=== PATIENT | male | born 1995 | race Caucasian/White ===

== ENCOUNTER 2021-05-21 03:34 | Emergency (ER) | payer OTHER ==
--- NOTE | 2021-05-21 06:03 | EDPHYS ---
Physician Documentation [facility] Name: Taylor Mcdonald Age: 26 yrs Sex: Male : 1995 Arrival Date: 05/21/2021 Time: 03:36 Bed Treatment Private MD: ED Physician Dino Mccrary HPI: 05/21 05:56 This 26 yrs old Male presents to ER via Ambulatory with complaints of Ear Pain. mh7 05:56 The patient presents with pain, moderate. The complaints affect the right ear. Onset: mh7 The symptoms/episode began/occurred last night, and became worse this morning. Modifying factors: The symptoms are alleviated by nothing, the symptoms are aggravated by nothing. Associated signs and symptoms: Pertinent negatives: cough, fever, lightheadedness, nausea, rhinorrhea, sinus trouble, shortness of breath, sore throat, tinnitus, vertigo, vomiting. Severity of symptoms: At their worst the symptoms were moderate this morning, in the emergency department the symptoms are unchanged. Historical: - Allergies: 05:03 No Known Allergies; bb - Home Meds: 05:03 None [Active]; bb - PMHx: 05:03 None; bb - Immunization history:: Adult Immunizations up to date. - Social history:: Smoking status: Patient denies any tobacco usage or history of. ROS: 05:56 Constitutional: Negative for fever, chills, and weight loss, Eyes: Negative for injury, mh7 pain, redness, and discharge, Neck: Negative for injury, pain, and swelling, Cardiovascular: Negative for chest pain, palpitations, and edema, Respiratory: Negative for shortness of breath, cough, wheezing, and pleuritic chest pain, Abdomen/GI: Negative for abdominal pain, nausea, vomiting, diarrhea, and constipation, Back: Negative for injury and pain, : Negative for injury, bleeding, discharge, and swelling, MS/Extremity: Negative for injury and deformity, Skin: Negative for injury, rash, and discoloration, Neuro: Negative for headache, weakness, numbness, tingling, and seizure, Psych: Negative for depression, anxiety, suicide ideation, homicidal ideation, and hallucinations, Allergy/Immunology: Negative for hives, rash, and allergies, Endocrine: Negative for neck swelling, polydipsia, polyuria, polyphagia, and marked weight changes, Hematologic/Lymphatic: Negative for swollen nodes, abnormal bleeding, and unusual bruising. Exam: 05:56 Constitutional: This is a well developed, well nourished patient who is awake, alert, mh7 and in no acute distress. Head/Face: Normocephalic, atraumatic. Eyes: Pupils equal round and reactive to light, extra-ocular motions intact. Lids and lashes normal. Conjunctiva and sclera are non-icteric and not injected. Cornea within normal limits. Periorbital areas with no swelling, redness, or edema. 05:56 Neck: Trachea midline, no thyromegaly or masses palpated, and no cervical lymphadenopathy. Supple, full range of motion without nuchal rigidity, or vertebral point tenderness. No Meningismus. Chest/axilla: Normal chest wall appearance and motion. Nontender with no deformity. No lesions are appreciated. Cardiovascular: Regular rate and rhythm with a normal S1 and S2. No gallops, murmurs, or rubs. Normal PMI, no JVD. No pulse deficits. Respiratory: Lungs have equal breath sounds bilaterally, clear to auscultation and percussion. No rales, rhonchi or wheezes noted. No increased work of breathing, no retractions or nasal flaring. Abdomen/GI: Soft, non-tender, with normal bowel sounds. No distension or tympany. No guarding or rebound. No evidence of tenderness throughout. Skin: Warm, dry with normal turgor. Normal color with no rashes, no lesions, and no evidence of cellulitis. MS/ Extremity: Pulses equal, no cyanosis. Neurovascular intact. Full, normal range of motion. Neuro: Awake and alert, GCS 15, oriented to person, place, time, and situation. Cranial nerves II-XII grossly intact. Motor strength 5/5 in all extremities. Sensory grossly intact. Cerebellar exam normal. Normal gait. Psych: Awake, alert, with orientation to person, place and time. Behavior, mood, and affect are within normal limits. 05:56 ENT: External ear(s): are unremarkable, Ear canal(s): are normal, clear, TM's: bulging, on the right, dullness, on the right, erythema, that is moderate, on the right, fluid levels, is not appreciated, hemotympanum, is not appreciated, bilaterally, loss of bony landmarks, is not appreciated, bilaterally, rupture, is not appreciated, bilaterally, Examination of the other ear shows no obvious abnormality, Nose: is normal, Mouth: is normal, Posterior pharynx: is normal, airway is patent, Dental exam: normal, Voice: is normal. Vital Signs: 05:01 BP 120 / 66; Pulse 84; Resp 18 S; Temp 98(O); Pulse Ox 96% on R/A; Weight 113.4 kg (R); bb Height 5 ft. 6 in. (167.64 cm) (R); Pain 10/10; 05:01 Body Mass Index 40.35 (113.40 kg, 167.64 cm) bb MDM: 05:56 Differential diagnosis: otitis media, otitis externa, ruptured TM, foreign body, acute mh7 otalgia, cerumen impaction, barotrauma , serotympanum. Data reviewed: vital signs, nurses notes. Data interpreted: Pulse oximetry: on room air is 96 %. Interpretation: normal. Counseling: I had a detailed discussion with the patient and/or guardian regarding: the historical points, exam findings, and any diagnostic results supporting the discharge/admit diagnosis, the need for outpatient follow up, to return to the emergency department if symptoms worsen or persist or if there are any questions or concerns that arise at home. 06:03 Patient medically screened. [facility] Administered Medications: 06:25 Drug: Augmentin (Amoxicillin-Clavulanate) 500 mg Route: PO; 06:25 Follow up: Response: Medication administered at discharge. 06:25 Drug: Ibuprofen 800 mg Route: PO; 06:25 Follow up: Response: Medication administered at discharge. Disposition Summary: 05/21/21 06:03 Discharge Ordered Location: Home [facility] Problem: new [facility] Symptoms: have improved [facility] Condition: Stable 7 Diagnosis - Otitis media, unspecified, right ear 7 Followup: [facility] - With: Private Physician - When: 2 - 3 days - Reason: Worsening of condition, Recheck today's complaints, Continuance of care, Re-evaluation by your physician Discharge Instructions: - Discharge Summary Sheet 7 - Otitis Media, Adult, [id number] [facility] Forms: - Medication Reconciliation Form mh7 - Work release form eb - Thank You Letter 7 - Antibiotic Education mh7 - Prescription Opioid Use mh7 Prescriptions: - Augmentin 875-125 mg Oral Tablet - take 1 tablet by ORAL route every 12 hours for 10 days; 20 tablet; Refills: 0, [facility] Product Selection Permitted - Ibuprofen 800 mg Oral Tablet - take 1 tablet by ORAL route every 8 hours As needed take with food; 15 tablet; [facility] Refills: 0, Product Selection Permitted Signatures: Lois Garcia RN RN bb Holmes, Maurice, MD MD [facility]
--- NOTE | 2021-05-21 06:03 | ER ---
Nurse's Notes [facility] Name: Taylor Mcdonald Age: 26 yrs Sex: Male : 1995 Arrival Date: 05/21/2021 Time: 03:36 Bed Treatment Private MD: Diagnosis: Otitis media, unspecified, right ear Presentation: 05/21 05:01 Chief complaint: Patient states: she woke up this morning with right ear pain has bb pressure going down her jaw into her neck pain is 10/10. Coronavirus screen: At this time, the client does not indicate any symptoms associated with coronavirus-19. Ebola Screen: No symptoms or risks identified at this time. Initial Sepsis Screen: Does the patient meet any 2 criteria? No. Patient's initial sepsis screen is negative. Does the patient have a suspected source of infection? No. Patient's initial sepsis screen is negative. Risk Assessment: Do you want to hurt yourself or someone else? Patient reports no desire to harm self or others. Onset of symptoms was May 21, 2021. 05:01 Method Of Arrival: Ambulatory bb 05:01 Acuity: ADEBAYO 5 bb Triage Assessment: 05:03 General: Appears in no apparent distress. uncomfortable, Behavior is calm, cooperative. bb Pain: Complains of pain in right ear Pain currently is 10 out of 10 on a pain scale. EENT: Reports pain in right ear. Neuro: Level of Consciousness is awake, alert, obeys commands, Oriented to person, place, time, situation. Cardiovascular: Capillary refill < 3 seconds Patient's skin is warm and dry. Respiratory: Respiratory effort is even, unlabored. GI: No signs and/or symptoms were reported involving the gastrointestinal system. Derm: Skin is pink, warm \T\ dry. Musculoskeletal: Circulation, motion, and sensation intact. Historical: - Allergies: 05:03 No Known Allergies; bb - Home Meds: 05:03 None [Active]; bb - PMHx: 05:03 None; bb - Immunization history:: Adult Immunizations up to date. - Social history:: Smoking status: Patient denies any tobacco usage or history of. Screenin:05 Abuse screen: Denies threats or abuse. Nutritional screening: No deficits noted. bb Tuberculosis screening: No symptoms or risk factors identified. Fall Risk None identified. Assessment: 05:05 Reassessment: No changes from previously documented assessment. Patient is alert, bb oriented x 3, equal unlabored respirations, skin warm/dry/pink. see triage assessment. 06:25 Reassessment: Patient is alert, oriented x 3, equal unlabored respirations, skin bb warm/dry/pink. pt verbalized understanding of and agrees to plan of care discharge instructions given pt ambulated with steady gait to exit accompanied by spouse. Vital Signs: 05:01 BP 120 / 66; Pulse 84; Resp 18 S; Temp 98(O); Pulse Ox 96% on R/A; Weight 113.4 kg (R); bb Height 5 ft. 6 in. (167.64 cm) (R); Pain 10/10; 05:01 Body Mass Index 40.35 (113.40 kg, 167.64 cm) bb ED Course: 03:36 Patient arrived in ED. 05:03 Triage completed. bb 05:03 Arm band placed on Patient placed in an exam room, on a stretcher, on pulse oximetry. bb 05:05 Patient has correct armband on for positive identification. Call light in reach. Adult bb w/ patient. 05:44 Dino Mccrary MD is Attending Physician. [facility] 06:14 Lois Garcia RN is Primary Nurse. bb 06:26 No provider procedures requiring assistance completed. Patient did not have IV access bb during this emergency room visit. Administered Medications: 06:25 Drug: Augmentin (Amoxicillin-Clavulanate) 500 mg Route: PO; bb 06:25 Follow up: Response: Medication administered at discharge. bb 06:25 Drug: Ibuprofen 800 mg Route: PO; bb 06:25 Follow up: Response: Medication administered at discharge. bb Outcome: 06:03 Discharge ordered by . [facility] 06:26 Discharged to home ambulatory, with family. bb 06:26 Condition: stable 06:26 Discharge instructions given to patient, Instructed on discharge instructions, follow up and referral plans. medication usage, Demonstrated understanding of instructions, follow-up care, medications, Prescriptions given X 2. 06:26 Patient left the ED. bb Signatures: Lois Garcia, JAMES RN bb Dino Mccrary MD MD [facility] Regine Villegas
[2021-05-21] MEDS ORDERED: IBUPROFEN 400 MG TAB ONE (06:19)
[2021-05-21] MEDS ORDERED: AMOX/K CLAV 875 MG TAB ONE (06:19)
[2021-05-21 06:33] VITALS: BP 120/66; TEMP 98; O2SAT 96
== END 2021-05-21 06:26 | disposition home or self-care (01) ==
LOC: ER 03:34
DX: H66.91 Otitis media, unspecified, right ear (principal)
CPT/HCPCS: 99283

== ENCOUNTER 2021-06-06 20:13 | Emergency (ER) | payer OTHER ==
[2021-06-06] MEDS ORDERED: TETANUS & DIPHTHERIA TOX,ADULT 0.5 ML VIAL ONE (22:09)
--- NOTE | 2021-06-06 22:36 | EDPHYS ---
Physician Documentation [facility] Name: Taylor Mcdonald Age: 26 yrs Sex: Male : 1995 Arrival Date: 06/06/2021 Time: 20:16 Bed 23 Private MD: ED Physician Chris Mahoney HPI: 06/06 21:59 This 26 yrs old Male presents to ER via Ambulatory with complaints of Laceration To kb Hand. 21:59 The patient has a laceration related to: cooking, occurred at home, and there are no kb complicating factors. The injury was accidental. The laceration(s) is(are) located on the lateral aspect of left hand. Onset: The symptoms/episode began/occurred just prior to arrival. Associated signs and symptoms: The patient has no apparent associated signs or symptoms. The patient has not experienced similar symptoms in the past. The patient has not recently seen a physician. Accidentally cut hand while trying to get pit out of [place]. Historical: - Allergies: 20:29 No Known Allergies; ld1 - Home Meds: 20:29 None [Active]; ld1 - PMHx: 20:29 None; ld1 - PSHx: 20:29 section; ld1 - Immunization history:: Adult Immunizations up to date, Client reports having NOT received the Covid vaccine. - Social history:: Smoking status: Patient denies any tobacco usage or history of. Patient/guardian denies using alcohol. ROS: 21:58 Constitutional: Negative for fever, chills, and weight loss. kb 21:58 Skin: Positive for laceration(s), of the lateral aspect of left hand. 21:58 All other systems are negative. Exam: 21:59 Constitutional: This is a well developed, well nourished patient who is awake, alert, kb and in no acute distress. Head/Face: Normocephalic, atraumatic. ENT: Moist Mucous membranes Cardiovascular: Regular rate and rhythm with a normal S1 and S2. No gallops, murmurs, or rubs. No pulse deficits. Respiratory: Respirations even and unlabored. No increased work of breathing. Talking in full sentences MS/ Extremity: Pulses equal, no cyanosis. Neurovascular intact. Full, normal range of motion. Neuro: Awake and alert, GCS 15, oriented to person, place, time, and situation. Moves all extremities. Normal gait. Psych: Awake, alert, with orientation to person, place and time. Behavior, mood, and affect are within normal limits. 21:59 Skin: injury, laceration(s), the wound is approximately 1.5 cm(s), of the lateral aspect of left hand, that can be described as clean, no foreign body, linear, without bleeding. Vital Signs: 20:27 BP 129 / 86; Pulse 81; Resp 18; Temp 98.0(O); Pulse Ox 100% on R/A; Weight 113.4 kg; ld1 Height 5 ft. 6 in. (167.64 cm); Pain 7/10; 20:27 Body Mass Index 40.35 (113.40 kg, 167.64 cm) ld1 Laceration: 22:35 Wound Repair of 1.5cm ( 0.6in ) subcutaneous laceration to lateral aspect of left hand. kb Linear shaped.. Distal neuro/vascular/tendon intact. Anesthesia: Wound infiltrated with 1 mls of 1% lidocaine. Wound prep: Extensive cleansing with betadine by me, Wound irrigation with saline by me. Skin closed with 3 5-0 Prolene using simple sutures and sterile technique. Patient tolerated well. MDM: 21:09 Patient medically screened. kb 21:57 Data reviewed: vital signs, nurses notes. Data interpreted: Pulse oximetry: on room air kb is 100 %. Interpretation: normal. Counseling: I had a detailed discussion with the patient and/or guardian regarding: the historical points, exam findings, and any diagnostic results supporting the discharge/admit diagnosis, the need for outpatient follow up, a family practitioner, to return to the emergency department if symptoms worsen or persist or if there are any questions or concerns that arise at home. 06/06 21:25 Order name: Dressing - Wound; Complete Time: 22:08 kd3 06/06 21:25 Order name: Gloves, Sterile; Complete Time: 22:35 kd3 06/06 21:25 Order name: Prolene, Sutures; Complete Time: 22:08 kd3 06/06 21:25 Order name: Setup Suture Tray; Complete Time: 22:08 kd3 Administered Medications: 22:11 Drug: Tetanus-Diphtheria Toxoid Adult 0.5 ml {[employer] Contact [employer]inter: [employer]. Exp: sf1 10/01/2022. Lot #: [id number]. } Route: IM; Site: right deltoid; Disposition: 23:45 Co-signature as Attending Physician, Chris Mahoney MD. pkl Disposition Summary: 06/06/21 22:36 Discharge Ordered Location: Home kb Condition: Stable kb Diagnosis - Laceration without foreign body of left hand kb Followup: kb - With: Emergency Department - When: As needed - Reason: Worsening of condition Followup: kb - With: Private Physician - When: 2 - 3 days - Reason: Recheck today's complaints, Continuance of care, Re-evaluation by your physician Discharge Instructions: - Discharge Summary Sheet kb - Laceration Care, Adult, [id number] kb Forms: - Medication Reconciliation Form kb - Thank You Letter kb - Antibiotic Education kb - Prescription Opioid Use kb Signatures: Ann Moulton, YACHT BUILDER-C YACHT BUILDER-Ckb Chris Mahoney MD MD pkl Miriam Snell, RN RN ld1 Danielle Ramos RN RN kd3 Mouna Lee RN RN sf1
--- NOTE | 2021-06-06 22:36 | ER ---
Nurse's Notes [facility] Name: Taylor Mcdonald Age: 26 yrs Sex: Male : 1995 Arrival Date: 06/06/2021 Time: 20:16 Bed 23 Private MD: Diagnosis: Laceration without foreign body of left hand Presentation: 06/06 20:27 Chief complaint: Patient states: I was cutting an avocado the knife slipped and cut me. ld1 Laceration to left hand. Coronavirus screen: At this time, the client does not indicate any symptoms associated with coronavirus-19. Ebola Screen: No symptoms or risks identified at this time. Complicating Factors: There are no complicating factors for this patient. Initial Sepsis Screen: Does the patient meet any 2 criteria? No. Patient's initial sepsis screen is negative. Does the patient have a suspected source of infection? No. Patient's initial sepsis screen is negative. Risk Assessment: Do you want to hurt yourself or someone else? Patient reports no desire to harm self or others. Onset of symptoms was June 06, 2021. 20:27 Method Of Arrival: Ambulatory ld1 20:27 Acuity: ADEBAYO 4 ld1 Triage Assessment: 20:29 General: Appears in no apparent distress. comfortable, Behavior is calm, cooperative, ld1 appropriate for age. Pain: Complains of pain in left hand. Neuro: Level of Consciousness is awake, alert, obeys commands, Oriented to person, place, time, situation. Respiratory: Airway is patent Respiratory effort is even, unlabored. Injury Description: Laceration sustained to lateral aspect of left hand. Historical: - Allergies: 20:29 No Known Allergies; ld1 - Home Meds: 20:29 None [Active]; ld1 - PMHx: 20:29 None; ld1 - PSHx: 20:29 section; ld1 - Immunization history:: Adult Immunizations up to date, Client reports having NOT received the Covid vaccine. - Social history:: Smoking status: Patient denies any tobacco usage or history of. Patient/guardian denies using alcohol. Screenin:12 Abuse screen: Denies threats or abuse. Nutritional screening: No deficits noted. sf1 Tuberculosis screening: No symptoms or risk factors identified. Fall Risk None identified. Assessment: 22:11 General: Appears in no apparent distress. obese, Behavior is cooperative, anxious. sf1 Pain: Complains of pain in dorsal aspect of proximal phalanx of left index finger. Neuro: No deficits noted. Cardiovascular: No deficits noted. Respiratory: No deficits noted. Musculoskeletal: No deficits noted. Injury Description: Laceration is clean. Vital Signs: 20:27 BP 129 / 86; Pulse 81; Resp 18; Temp 98.0(O); Pulse Ox 100% on R/A; Weight 113.4 kg; ld1 Height 5 ft. 6 in. (167.64 cm); Pain 7/10; 20:27 Body Mass Index 40.35 (113.40 kg, 167.64 cm) ld1 ED Course: 20:16 Patient arrived in ED. es 20:29 Triage completed. ld1 20:29 Arm band placed on right wrist. ld1 20:37 [facility]C [facility] kb 20:37 Chris Mahoney MD is Attending Physician. kb 21:22 Mouna Lee RN is Primary Nurse. sf1 22:12 Patient has correct armband on for positive identification. Bed in low position. Call sf1 light in reach. 22:12 Assist provider with laceration repair Set up tray. sf1 22:47 Patient did not have IV access during this emergency room visit. sf1 Administered Medications: 22:11 Drug: Tetanus-Diphtheria Toxoid Adult 0.5 ml {[employer]od[employer] Operator: [employer]. Exp: sf1 10/01/2022. Lot #: [id number]. } Route: IM; Site: right deltoid; Outcome: 22:36 Discharge ordered by . kb 22:47 Discharged to home ambulatory. sf1 22:47 Condition: stable 22:47 Discharge instructions given to patient, Instructed on discharge instructions, follow up and referral plans. Demonstrated understanding of instructions, Prescriptions given X 22:47 Patient left the ED. sf1 Signatures: Ann Moulton FNP-C FNP-Ckb Salyer, Edna es Dibbern, Lauren, RN RN ld1 Mouna Lee RN RN sf1
[2021-06-07 00:16] VITALS: BP 129/86; TEMP 98; O2SAT 100
== END 2021-06-06 22:47 | disposition home or self-care (01) ==
LOC: ER 20:13
PROC: 0JQK0ZZ Repair Left Hand Subcutaneous Tissue and Fascia, Open Approach (ICD-10-PCS; principal; 2021-06-06)
DX: S61.412A Laceration without foreign body of left hand, initial encounter (principal); W26.9XXA Contact with unspecified sharp object(s), initial encounter; Y93.G3 Activity, cooking and baking; Y92.009 Unspecified place in unspecified non-institutional (private) residence as the place of occurrence of the external cause; Z23 Encounter for immunization
CPT/HCPCS: 90471; 90714; 99283